=== PATIENT | male | born 1990 | race Caucasian/White ===

== ENCOUNTER 2022-04-04 15:40 | Emergency (ER) | payer SELFPAY ==
[~2022-04-04] VITALS: Ht 177.8 cm; Wt 70.5 kg
[2022-04-04 15:51] VITALS: TEMP 97.9
[2022-04-04 17:03] VITALS: BP 122/78
[2022-04-04] MEDS ORDERED: ATARAX50 MG PO (17:25)
[2022-04-04 17:40] VITALS: PULSE 73
== END 2022-04-04 17:40 | disposition home or self-care (01) ==
LOC: COL.ER 15:40
DX: F41.9 Anxiety disorder, unspecified (principal)

== ENCOUNTER 2023-09-26 03:34 | Emergency (ER) | payer OTHER ==
[~2023-09-26] VITALS: Ht 177.8 cm; Wt 68.2 kg
[~2023-09-26 03:34] MED LIST: ATARAX50 MG PO
[2023-09-26 03:43] VITALS: TEMP 98.4
[2023-09-26 04:46] LABS: BASO # 0.1 K/mm3 (0.0-0.2); BASO % 0.9 % (0.0-2.0); EOS # 0.4 K/mm3 (0.0-0.7); EOS % 4.7 % (0.0-4.0); GRAN # 4.1 K/mm3 (1.4-6.5); GRAN % 52.8 % (42.2-75.2); HEMATOCRIT 44.2 % (42.0-52.0); HEMOGLOBIN 14.7 g/dl (13.5-18.0); LYMPH # 2.5 K/mm3 (1.2-3.4); LYMPH % 32.9 % (20.0-51.0); MEAN CELL VOLUME 90 fl (80.0-100.0); MEAN CORPUSCULAR HEMOGLOBIN 30 pg (27-31); MEAN CORPUSCULAR HGB CONC 33 g/dl (33.0-37.0); MEAN PLATELET VOLUME 10.3 fl (7.4-10.4); MONO # 0.7 K/mm3 (0.1-0.6); MONO % 8.4 % (1.7-9.3); PLATELET COUNT 251 K/mm3 (130-400); RED BLOOD COUNT 4.91 M/mm3 (4.20-5.60); REDCELL DISTRIBUTION WIDTH-CV 12.5 % (11.5-14.5)
[2023-09-26 04:53] LABS: ALBUMIN 3.9 gm/dL (3.5-5.0); BILIRUBIN,TOTAL 1.1 mg/dL (0.2-1.2); C-REACTIVE PROTEIN 0.24 mg/dL (0.00-0.50); CALCIUM 9.7 mg/dL (8.4-10.2); CREATININE, serum 0.96 mg/dL (0.72-1.25); POTASSIUM 3.3 mmol/L (3.5-4.5); TOTAL PROTEIN 8.1 gm/dL (6.2-8.1)
[2023-09-26 05:05] LABS: TROPONIN-I 0.011 ng/mL (0.00-0.033)
[2023-09-26 05:36] VITALS: BP 116/78; PULSE 76
== END 2023-09-26 05:35 | disposition home or self-care (01) ==
LOC: COL.ER 03:34
PROVIDERS: Emergency Medicine
DX: R07.89 Other chest pain (principal); F41.9 Anxiety disorder, unspecified; E87.6 Hypokalemia; R00.0 Tachycardia, unspecified; R93.89 Abnormal findings on diagnostic imaging of other specified body structures; Q74.0 Other congenital malformations of upper limb(s), including shoulder girdle; Z79.899 Other long term (current) drug therapy